=== PATIENT | female | born 1955 | race American Indian/Alaskan Native ===

== ENCOUNTER → 2017-08-06 | Emergency (ER) | payer OTHER ==
[~2017-08-06] MED LIST: ASPIRIN PO ONE; NACL 0.9% 1000 ML 1,000 ML IV ONE; PEPCID IV ONE; ZOFRAN IV ONE
[2017-08-06 22:51] VITALS: BP 185/124
[2017-08-06 22:53] LABS: Basophils # (Auto) 0.1 K/mm3 (0.0-0.1); Basophils % (Auto) 0.8 % (0.0-1.8); Eosinophils # (Auto) 0.1 K/mm3 (0.0-0.4); Eosinophils % (Auto) 1.6 % (0.0-4.3); Hematocrit 40.2 % (30.3-42.9); Hemoglobin 13.2 gm/dl (10.1-14.3); Lymphocytes # (Auto) 2.9 K/mm3 (1.2-5.4); Lymphocytes % (Auto) 39.1 % (13.4-35.0); Mean Corpuscular HGB Conc 33 % (30-34); Mean Corpuscular Hemoglobin 28 pg (28-32); Mean Corpuscular Volume 87 fl (79-97); Monocytes # (Auto) 0.5 K/mm3 (0.0-0.8); Platelet Count 344 K/mm3 (140-440); Red Blood Count 4.63 M/mm3 (3.65-5.03); Red Cell Distribution Width 15.3 % (13.2-15.2)
[2017-08-06 23:10] LABS: Alanine Aminotransferase 16 units/L (7-56); Albumin 4.3 g/dL (3.9-5); BUN/Creatinine Ratio 24; Blood Urea Nitrogen 19 mg/dL (7-17); Calcium 9.6 mg/dL (8.4-10.2); Hemolysis Index 44; Lipase 11 units/L (13-60)
--- NOTE | 2017-08-07 03:32 | Emergency Department Report ---
ED N/V/D HPI - General Chief complaint: Abdominal Pain Stated complaint: ABD PAIN Time Seen by Provider: 08/07/17 01:38 Source: patient, EMS Mode of arrival: Ambulatory Limitations: No Limitations - History of Present Illness Initial comments: Patient is a 62-year-old asthmatic female who is presenting with some epigastric pain. Patient states that after eating she started feeling crampy tenderness in the epigastrium and a fluttering feeling. Patient states felt like her heart was racing and she started sweating. Patient had one episode of nausea vomiting as well. Patient has continued to feel some lightheadedness although she is having a hard time explaining whether the lightheadedness is from feeling as though she is on a pass out or spinning sensation. Patient states the stomach cramps were generally first noted in the epigastric area is 6 out of 10 in severity. Patient denies any chest pain cough fevers chills or headache at this time. Patient's blood pressure is elevated but her blood pressure medicines were changed to weeks ago and her blood pressure is not well controlled as of yet - Related Data Previous Rx's Medication Instructions Recorded Last Taken Type Dicyclomine [Bentyl] 10 mg PO QID 2 Days capsule 08/07/17 Unknown Rx Famotidine [Pepcid] 20 mg PO BID #10 tablet 08/07/17 Unknown Rx Allergies Allergy/AdvReac Type Severity Reaction Status Date / Time No Known Allergies Allergy Unverified 08/06/17 21:20 ED Review of Systems ROS: Stated complaint: ABD PAIN Other details as noted in HPI Comment: All other systems reviewed and negative ED Past Medical Hx - Past Medical History Hx Hypertension: Yes - Surgical History Hx Appendectomy: Yes - Social History Smoking Status: Never Smoker Substance Use Type: None - Medications Home Medications: Home Medications Medication Instructions Recorded Confirmed Last Taken Type Dicyclomine [Bentyl] 10 mg PO QID 2 Days capsule 08/07/17 Unknown Rx Famotidine [Pepcid] 20 mg PO BID #10 tablet 08/07/17 Unknown Rx ED Physical Exam - General Limitations: No Limitations General appearance: alert, in no apparent distress - Head Head exam: Present: atraumatic, normocephalic - Eye Eye exam: Present: normal appearance - ENT ENT exam: Present: mucous membranes moist - Neck Neck exam: Present: normal inspection - Respiratory Respiratory exam: Present: normal lung sounds bilaterally. Absent: respiratory distress, wheezes, rales - Cardiovascular Cardiovascular Exam: Present: regular rate, normal rhythm. Absent: systolic murmur, diastolic murmur, rubs, gallop - GI/Abdominal GI/Abdominal exam: Present: soft, tenderness (epigastric epigastric), normal bowel sounds. Absent: distended, guarding, rebound - Extremities Exam Extremities exam: Present: normal inspection - Back Exam Back exam: Present: normal inspection - Neurological Exam Neurological exam: Present: alert, oriented X3 - Psychiatric Psychiatric exam: Present: normal affect, normal mood - Skin Skin exam: Present: warm, dry, intact, normal color. Absent: rash ED Course Vital Signs 08/06/17 08/06/17 21:16 22:50 Temperature 97.8 F Pulse Rate 79 87 Respiratory 20 18 Rate Blood Pressure 180/95 185/124 O2 Sat by Pulse 100 100 Oximetry ED Medical Decision Making - Lab Data Result diagrams: 08/06/17 22:44 08/06/17 22:44 Lab Results 08/06/17 08/06/17 Range/Units 22:44 22:44 WBC 7.5 (4.5-11.0) K/mm3 RBC 4.63 (3.65-5.03) M/mm3 Hgb 13.2 (10.1-14.3) gm/dl Hct 40.2 (30.3-42.9) % MCV 87 (79-97) fl MCH 28 (28-32) pg MCHC 33 (30-34) % RDW 15.3 H (13.2-15.2) % Plt Count 344 (140-440) K/mm3 Lymph % (Auto) 39.1 H (13.4-35.0) % [place] % (Auto) 6.0 (0.0-7.3) % Eos % (Auto) 1.6 (0.0-4.3) % Baso % (Auto) 0.8 (0.0-1.8) % Lymph # 2.9 (1.2-5.4) K/mm3 [place] # 0.5 (0.0-0.8) K/mm3 Eos # 0.1 (0.0-0.4) K/mm3 Baso # 0.1 (0.0-0.1) K/mm3 Seg Neutrophils % 52.5 (40.0-70.0) % Seg Neutrophils # 3.9 (1.8-7.7) K/mm3 Sodium 136 L (137-145) mmol/L Potassium 4.5 (3.6-5.0) mmol/L Chloride 94.0 L (98-107) mmol/L Carbon Dioxide 29 (22-30) mmol/L Anion Gap 18 mmol/L BUN 19 H (7-17) mg/dL Creatinine 0.8 (0.7-1.2) mg/dL Estimated GFR > 60 ml/min BUN/Creatinine Ratio 24 % Glucose 103 H (65-100) mg/dL Calcium 9.6 (8.4-10.2) mg/dL Total Bilirubin 0.20 (0.1-1.2) mg/dL AST 18 (5-40) units/L ALT 16 (7-56) units/L Alkaline Phosphatase 132 H (35-129) units/L Troponin T < 0.010 (0.00-0.029) ng/mL Total Protein 8.7 H (6.3-8.2) g/dL Albumin 4.3 (3.9-5) g/dL Albumin/Globulin Ratio 1.0 % Lipase 11 L (13-60) units/L - EKG Data -: EKG Interpreted by Me - EKG Data Interpretation: other (EKG shows sinus rhythm axis is leftward intervals are normal there is inferior and anterior Q waves present poor R-wave progression is no ST segment elevations or depressions time interpretation is 2113) - Medical Decision Making Asa states that before her episode of abdominal pain and lightheadedness today she stopped at a take-out restaurant and ate some chicken and started having symptoms about an hour afterwards. Ultrasounds within normal limits and no gallstones present labs are all within normal limits as well including a troponin patient is blood pressures improved is 135 systolic here in the emergency department now patient states she feels fine she no longer nauseous no longer has epigastric discomfort. Patient be discharged home. Critical care attestation.: If time is entered above; I have spent that time in minutes in the direct care of this critically ill patient, excluding procedure time. ED Disposition Clinical Impression: Gastritis, Hypertensive urgency Disposition: DC- TO HOME OR SELFCARE Is pt being admited?: No Does the pt Need Aspirin: No Condition: Stable Instructions: Abdominal Pain (ED), Gastritis (ED) Prescriptions: Dicyclomine [Bentyl] 10 mg PO QID 2 Days capsule Famotidine [Pepcid] 20 mg PO BID #10 tablet Referrals: MARION ARNOLD MD [Primary Care Provider] - 3-5 Days
--- NOTE | 2017-08-07 03:42 | Ultrasound Report ---
FINAL REPORT EXAM: US ABDOMEN LIMITED HISTORY: epigastric pain TECHNIQUE: Routine imaging was obtained of the right upper outer quadrant. FINDINGS: The gallbladder is normal in size and wall thickness. Stones are not seen. The common bile duct measures 4.8 mm in diameter which is normal. The liver is normal size and echotexture. The pancreas is not well seen because of bowel gas. The right kidney is normal in size contour and echotexture measuring 10.6 cm from pole to pole. There is no evidence of hydronephrosis. Free fluid is not seen IMPRESSION: Within normal limits. Please note that the pancreas was not adequately seen because obscuring bowel gas
== END | disposition home or self-care (01) ==
LOC: ED 20:49
DX: K29.70 Gastritis, unspecified, without bleeding (principal); I16.0 Hypertensive urgency; I10 Essential (primary) hypertension; Z90.49 Acquired absence of other specified parts of digestive tract
CPT/HCPCS: 36415; 76705; 80053; 83690; 84484; 85025; 93005; 93010; 96361; 96374; 96375; J2405; J7030

== ENCOUNTER 2020-05-10 13:02 | Emergency (ER) | payer OTHER ==
[2020-05-10 16:15] VITALS: BP 143/76
--- NOTE | 2020-05-10 17:25 | Event Note ---
ED Screening Note ED Screening Note: states she tested positive for COVID 19 in march 20 states she has generalized weakness feels like her heart beats fast states she feels SOB no n/v/d PMHx heart palpitations, HTN no allergies to meds non smoker This initial assessment/diagnostic orders/clinical plan/treatment(s) is/are subject to change based on patients health status, clinical progression and re- assessment by fellow clinical providers in the ED. Further treatment and workup at subsequent clinical providers discretion. Patient/guardian urged not to elope from the ED as their condition may be serious if not clinically assessed and managed. Initial orders include: labs, CXR
--- NOTE | 2020-05-10 17:57 | XRay Report ---
CHEST 2 VIEWS INDICATION / CLINICAL INFORMATION: Shortness of breath. COMPARISON: None available. FINDINGS: SUPPORT DEVICES: None. HEART / MEDIASTINUM: No significant abnormality. LUNGS / PLEURA: No significant pulmonary or pleural abnormality. No pneumothorax. ADDITIONAL FINDINGS: No significant additional findings. IMPRESSION: 1. No acute findings. Signer Name: Axel Crouch MD Signed: 05/10/2020 5:53 PM Workstation Name: [id number]
[2020-05-10 18:11] LABS: Basophils % (Auto) 0.5 % (0.0-1.8); Eosinophils # (Auto) 0.2 K/mm3 (0.0-0.4); Hematocrit 35.7 % (30.3-42.9); Hemoglobin 12.2 gm/dl (10.1-14.3); Lymphocytes # (Auto) 2.5 K/mm3 (1.2-5.4); Lymphocytes % (Auto) 39.7 % (13.4-35.0); Mean Corpuscular HGB Conc 34 % (30-34); Mean Corpuscular Volume 87 fl (79-97); Monocytes # (Auto) 0.6 K/mm3 (0.0-0.8); Monocytes % (Auto) 9.1 % (0.0-7.3); Platelet Count 365 K/mm3 (140-440)
[2020-05-10 18:21] LABS: Alanine Aminotransferase 23 units/L (7-56); Albumin 3.5 g/dL (3.9-5); BUN/Creatinine Ratio 16; Blood Urea Nitrogen 18 mg/dL (7-17); Calcium 9.4 mg/dL (8.4-10.2); Hemolysis Index 9
--- NOTE | 2020-05-10 20:39 | Emergency Department Report ---
ED General Adult HPI - General Chief complaint: Weakness Stated complaint: COVID SYM/WEAKNESS PUI?: No Time Seen by Provider: 05/10/20 17:22 Source: patient Mode of arrival: Ambulatory Limitations: No Limitations - History of Present Illness Initial comments: Chief complaint: "patrick have been diagnosed with COVID-19 I have not been the same." HPI: This is a 64-year-old female with history of hypertension, palpitations who was diagnosed with COVID-19 on March 20. She has had 3+ test since then. She has continued weakness and shortness of breath. She has been on leave for the past 11 weeks. She has 3 more weeks until her leave has been completely concerned. She desires documentation for extended leave. It takes 3 to 4 weeks to obtain a telephone consultation with her PCP. She denies fever. She denies chest pain. She denies headache or body aches. She does have fatigue and shortness of breath when lying flat. -: Gradual, month(s) (2 months) Severity scale (0 -10): 0 Consistency: constant Improves with: rest Worsens with: other (Laying flat) Associated Symptoms: other (Fatigue shortness of breath no other symptoms) - Related Data Previous Rx's Medication Instructions Recorded Last Taken Type Dicyclomine [Bentyl] 10 mg PO QID 2 Days capsule 08/07/17 Unknown Rx Famotidine [Pepcid] 20 mg PO BID #10 tablet 08/07/17 Unknown Rx Allergies Allergy/AdvReac Type Severity Reaction Status Date / Time No Known Allergies Allergy Unverified 08/06/17 21:20 ED Review of Systems ROS: Stated complaint: COVID SYM/WEAKNESS Other details as noted in HPI Comment: All other systems reviewed and negative Constitutional: denies: fever, malaise Respiratory: shortness of breath. denies: cough, wheezing Cardiovascular: denies: chest pain Gastrointestinal: denies: abdominal pain, nausea, vomiting ED Past Medical Hx - Past Medical History Previous Medical History?: Yes Hx Hypertension: Yes - Surgical History Past Surgical History?: Yes Hx Appendectomy: Yes - Social History Smoking Status: Never Smoker Substance Use Type: None - Medications Home Medications: Home Medications Medication Instructions Recorded Confirmed Last Taken Type Dicyclomine [Bentyl] 10 mg PO QID 2 Days capsule 08/07/17 Unknown Rx Famotidine [Pepcid] 20 mg PO BID #10 tablet 08/07/17 Unknown Rx ED Physical Exam - General Limitations: No Limitations General appearance: alert, in no apparent distress, other (Patient appears well. She is talkative. She ambulates without difficulty.) - Head Head exam: Present: atraumatic, normocephalic - Eye Eye exam: Present: normal appearance - ENT ENT exam: Present: mucous membranes moist - Neck Neck exam: Present: normal inspection, full ROM - Respiratory Respiratory exam: Present: normal lung sounds bilaterally. Absent: respiratory distress, wheezes, rales, rhonchi - Cardiovascular Cardiovascular Exam: Present: regular rate, normal rhythm, normal heart sounds. Absent: systolic murmur, diastolic murmur, rubs, gallop - GI/Abdominal GI/Abdominal exam: Present: soft, normal bowel sounds. Absent: distended, tenderness, guarding, rebound - Extremities Exam Extremities exam: Present: normal inspection - Neurological Exam Neurological exam: Present: alert, oriented X3 - Psychiatric Psychiatric exam: Present: normal affect, normal mood - Skin Skin exam: Present: warm, dry, intact, normal color. Absent: rash ED Course Vital Signs 05/10/20 16:13 Temperature 97.8 F Pulse Rate 61 Respiratory 20 Rate Blood Pressure 143/76 [Right] O2 Sat by Pulse 100 Oximetry ED Medical Decision Making - Lab Data Result diagrams: 05/10/20 17:29 05/10/20 17:29 Laboratory Results - last 24 hr 05/10/20 05/10/20 05/10/20 17:29 17:29 17:29 WBC 6.3 RBC 4.10 Hgb 12.2 Hct 35.7 MCV 87 MCH 30 MCHC 34 RDW 14.0 Plt Count 365 Lymph % (Auto) 39.7 H [place] % (Auto) 9.1 H Eos % (Auto) 3.0 Baso % (Auto) 0.5 Lymph # (Auto) 2.5 [place] # (Auto) 0.6 Eos # (Auto) 0.2 Baso # (Auto) 0.0 Seg Neutrophils % 47.7 Seg Neutrophils # 3.0 Sodium 135 L Potassium 3.9 Chloride 100.2 Carbon Dioxide 27 Anion Gap 12 BUN 18 H Creatinine 1.1 Estimated GFR > 60 BUN/Creatinine Ratio 16 Glucose 82 Calcium 9.4 Magnesium 1.90 Total Bilirubin 0.20 AST 20 ALT 23 Alkaline Phosphatase 125 Total Creatine Kinase 49 Total Protein 8.4 H Albumin 3.5 L Albumin/Globulin Ratio 0.7 TSH 3.170 - Radiology Data Radiology results: report reviewed Chest radiograph: No acute process according to radiology impression - Medical Decision Making Ms. Lamas is a 64-year-old female with history of hypertension and palpitations presents with fatigue shortness of breath since diagnosis of COVID-19 March 20. Patient appears well on today's exam. CBC chemistry TSH within normal limits. Chest radiograph absent of pneumonia or pneumothorax. Her oxygen saturations are percent on room air. Patient appears well. I do understand that she will have residual shortness of breath. 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 Critical care attestation.: If time is entered above; I have spent that time in minutes in the direct care of this critically ill patient, excluding procedure time. ED Disposition Clinical Impression: Shortness of breath, Fatigue, COVID-19 Disposition: DC- TO HOME OR SELFCARE Is pt being admited?: No Does the pt Need Aspirin: No Condition: Stable Instructions: Shortness of Breath, Adult, [id number], COVID-19 Referrals: KIARA JAMISON MD [Primary Care Provider] - 3-5 Days
== END 2020-05-10 20:50 | disposition home or self-care (01) ==
LOC: ED 13:02
DX: U07.1 COVID-19 (principal); R06.02 Shortness of breath; R53.83 Other fatigue; I10 Essential (primary) hypertension; Z90.49 Acquired absence of other specified parts of digestive tract; Z79.899 Other long term (current) drug therapy
CPT/HCPCS: 36415; 71046; 80053; 82550; 83735; 84443; 85025